=== PATIENT | male | born 1965 | race Caucasian/White ===

== ENCOUNTER 2017-03-17 18:03 | Emergency (ER) | payer SELFPAY ==
[~2017-03-17] VITALS: Ht 177.8 cm; Wt 65.0 kg
[2017-03-17 18:03] VITALS: O2SAT 0
[2017-03-17] MEDS ORDERED: EPINEPHrine HCL (1:10,000) 1 MG/10 ML SYRINGE IV ONE (18:04)
[2017-03-17] MEDS ORDERED: DEXTROSE 50% IN WATER 50 ML SYRINGE IV ONE (18:04)
[2017-03-17] MEDS ORDERED: SODIUM BICARBONATE 8.4% INJ 50 MEQ/50 ML SYR IV ONE (18:04)
--- NOTE | 2017-03-17 18:58 | PD ---
HPI Chief Complaint: Code Blue Time Seen by Provider: 18:44 Travel History International Travel<30 days: No (UNABLE TO ASSESS) Contact w/Intl Traveler<30days: No (UNABLE TO ASSESS) Traveled to known affect area: No (UNABLE TO ASSESS) History of Present Illness HPI This is a 14-ez[age]-k[age]-old male who is brought in via EMS in cardiac arrest. Apparently the patient was seen unresponsive by driving by motorist and 911 was called. When paramedics arrived, they found the patient in asystole however he was still warm to the touch so they began working in cardiac arrest. A Combitube was placed and ACLS was initiated. He had a interosseous line placed in his left lower extremity. Unknown medical history. No obvious signs of external trauma. The patient had received 5 rounds of epinephrine and one round of 1 amp of bicarbonate prior to arrival. [facility] Social History Tobacco Use: No (unknown) Review of Systems ROS Limitations: Intubated Except as stated in HPI: all other systems reviewed are Neg (unable to obtain review of systems secondary to the patient's cardiac arrest status.) Physical Exam Narrative GENERAL: Well-developed male who is actively being ventilated through Combitube and had chest compressions in place. SKIN: Focused skin assessment warm and cool. HEAD: Atraumatic. Normocephalic. EYES: Pupils equal and fixed at 3 mm. no scleral icterus. No injection or drainage. ENT: No nasal bleeding or discharge. Mucous membranes pink and moist. NECK: Trachea midline. Prominent Donnie's apple. CARDIOVASCULAR: Asystole on the monitor. No cardiac activity RESPIRATORY: Patient came in being bagged through Combitube. He had equal breath sounds. GASTROINTESTINAL: Abdomen soft, non-tender, nondistended. Slightly mottled. MUSCULOSKELETAL: No obvious deformities. No clubbing. No cyanosis. No edema. NEUROLOGICAL: A and O 0. Patient had a GCS of 3 E1, V1, and 1. [facility] Medical Decision Making Medical Screen Exam Complete: Yes Emergency Medical Condition: Yes Differential Diagnosis Respiratory arrest versus cardiac arrest versus metabolic derangement Narrative Course 14-oxt-sdfx-old male brought in in cardiac arrest. The patient received 5 epinephrines and one bicarbonate prior to arrival. The patient was given 3 further epinephrines and an amp of bicarbonate by this physician. He was formerly intubated using the glidescope within 80 ET tube. Despite ACLS protocol, the patient remained in asystole and began to have increased mottling. He was pronounced at 1822. Critical Care Narrative Aggregate critical care time was 40 minutes. Time to perform other separately billable procedures was not included in the critical care time. My time did not include minutes spent treating any other patients simultaneously or on activities that did not directly contribute to the patient's treatment. The services I provided to this patient were to treat and/or prevent clinically significant deterioration that could result in: I provided critical care services requiring my management, as noted below: Chart data review, documentation time, medication orders and management, vital sign assessments/reviewing monitor data, ordering and reviewing lab tests, ordering and interpreting/reviewing x-rays and diagnostic studies, care of the patient and discussion of the patient with the admitting physicians. Procedures Procedure Narrative Intubated emergently: Using a CMAC, the patient was intubated with an 8.0 ET tube. Breath sounds were equal bilaterally with absent abdominal sounds after intubation. Good colorimetric change. No medications were required. Diagnosis Primary Impression: acute cardiopulmonary arrest Disposition: 20 Condition: Luis Daniel Rosas MD Mar 17, 2017 18:58
== END 2017-03-17 21:55 | disposition expired ==
LOC: NEPC 18:03 → EDBD 18:03 → NEPI 21:55
DX: I46.9 Cardiac arrest, cause unspecified (principal)
CPT/HCPCS: 31500; 92950; 96374; 96375; 99285; J0171